=== PATIENT | female | born 1990 | race African-American/Black ===

== ENCOUNTER 2024-05-04 12:44 | Emergency (ER) | payer SELFPAY ==
[~2024-05-04] VITALS: Ht 165.1 cm; Wt 77.0 kg
[2024-05-04 12:45] VITALS: BP 129/74; PULSE 57; RESP 16; TEMP 98.9; O2SAT 99
[2024-05-04 13:17] LABS: BASOPHILS % 0.1 % (0.0-2.0); EOSINOPHILS % 0.2 % (0.0-5.0); HEMATOCRIT. 42.1 % (36.0-48.0); HEMOGLOBIN. 13.7 g/dL (12.0-16.0); LYMPHOCYTES % 19.4 % (20.0-50.0); MEAN CORPUSCULAR HEMOGLOBIN 28.7 pg (28.0-32.0); MEAN CORPUSCULAR HGB CONC 32.6 g/dL (31.0-37.0); MEAN CORPUSCULAR VOLUME 88.2 fL (81.0-99.0); MEAN PLATELET VOLUME 7.9 fl (7.4-10.4); MONOCYTES % 7.2 % (2.0-8.0); NEUTROPHILS % 73.1 % (40.0-76.0); PLATELET 286 x1000/uL (130-400); RED BLOOD CELL COUNT 4.78 mill/uL (4.2-5.4); RED CELL DISTRIBUTION WIDTH 13.9 % (11.6-14.6); WHITE BLOOD COUNT 9.6 x1000/uL (4.5-11.0)
[2024-05-04 13:32] LABS: CHLORIDE 107 mEq/L (98-107); POTASSIUM 3.6 mEq/L (3.5-5.1); SODIUM 141 mEq/L (136-145)
[2024-05-04 13:33] LABS: CALCIUM 9.9 mg/dL (8.7-10.4); CARBON DIOXIDE 28 mEq/L (21-32)
[2024-05-04 13:36] LABS: PROTHROMBIN TIME 11.2 sec (9.6-11.0)
[2024-05-04 13:38] LABS: CREATININE 0.6 mg/dL (0.6-1.0); GLUCOSE 88 mg/dL (70-105); UREA NITROGEN BLOOD 10 mg/dL (9-23)
[2024-05-04 13:47] LABS: TROPONIN I HIGH SENSITIVITY < 4 ng/L (3.0-34)
[2024-05-04 14:23] LABS: HCG SCREEN NEGATIVE
[2024-05-04 15:01] LABS: CLARITY URINE CLEAR (CLEAR); COLOR URINE YELLOW (YELLOW); GLUCOSE URINE NEGATIVE (NEGATIVE); KETONES URINE NEGATIVE (NEGATIVE); LEUKOCYTE ESTERASE URINE TRACE (NEGATIVE); NITRITE URINE NEGATIVE (NEGATIVE); OCCULT BLOOD URINE NEGATIVE (NEGATIVE); PH URINE 7.5 (4.5-8.0); PROTEIN URINE NEGATIVE (NEGATIVE); SPECIFIC GRAVITY URINE 1.011 (1.005-1.030)
[2024-05-04] MEDS: IBUPROFEN 600MG TABLET PO ONE (15:33)
[2024-05-04] MEDS ORDERED: METH-653 MT (15:34)
[2024-05-04] MEDS ORDERED: IBUP-2029 MT (15:34)
[2024-05-04 15:39] LABS: BACTERIA URINE NONE SEEN; RBC URINE NONE SEEN /hpf (0-2); SQUAMOUS EPITHELIAL CELL URINE RARE /lpf (RARE/1+); WBC URINE 0-2 /hpf (0-2)
== END 2024-05-04 15:50 | disposition home or self-care (01) ==
LOC: ER 12:44
DX: R07.89 Other chest pain (principal)
CPT/HCPCS: 36415; 71045; 80048; 81003; 83880; 84484; 84703; 85025; 93005; 99285

== ENCOUNTER 2024-07-30 13:50 | Emergency (ER) | payer SELFPAY ==
[~2024-07-30] VITALS: Ht 165.1 cm; Wt 69.0 kg
[~2024-07-30 13:50] MED LIST: IBUP-2029 MT; METH-653 MT
[2024-07-30 13:53] VITALS: O2SAT 98
[2024-07-30 14:02] VITALS: TEMP 37.2; O2SAT 99
[2024-07-30 15:26] VITALS: BP 119/76; PULSE 78; RESP 16
[2024-07-30] MEDS: KETOROLAC 30MG/ML VIAL IM ONE (15:26)
[2024-07-30] MEDS ORDERED: IBUP-2029 MT (15:27)
== END 2024-07-30 15:31 | disposition home or self-care (01) ==
LOC: ER 13:50
DX: R07.89 Other chest pain (principal); Z79.899 Other long term (current) drug therapy
CPT/HCPCS: 99283; 71045; 93005; 96372; J1885